=== PATIENT | male | born 1985 | race Caucasian/White ===

== ENCOUNTER → 2016-12-06 | Outpatient (CLI) | payer OTHER ==
--- NOTE | 2016-12-06 17:12 | PN ---
DATE OF SERVICE: 12/06/2016 This patient is a 30-year-old gentleman who has been followed in the sleep center. He is here to discuss results of his sleep studies. The patient had 2 home sleep apnea tests and polysomnogram in the office. No significant respiratory abnormalities were documented during the sleep studies. Scoring was done mostly following 4% oxygen desaturation criteria. Patient recently has been started on treatment with Paxil for post-traumatic stress disorder, and with this treatment the patient sleeps better and feels better during the day, although his [place] Sleepiness Scale today is still borderline at 10. His sleep study also showed increasing ( ) intrusion during REM sleep. Patient has a positive history of sleepwalking and sleeptalking. MEDICATIONS: 1. Paxil. 2. Vitamin D. 3. Fish oil. During physical exam, patient is in no distress. VITAL SIGNS: BP 120/74, HR 74, RR 16. Weight 224. Height 5 feet 8 inches. Oxygen saturation at room air 97%. HEENT: PERRLA, EOMI. LUNGS: Clear. HEART: S1, S2 regular. ABDOMEN: Slightly obese, soft, nontender. EXTREMITIES: No edema. 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 IMPRESSION: 1. No significant respiratory abnormalities by results of sleep studies with 4% oxygen desaturation criteria for hypopneas. 2. Possible post-traumatic stress disorder. Patient feels better while using Paxil with relationship to his sleep and feeling during the day. 3. Patient continues to have some sleepiness during the day. [place] Sleepiness Scale is 10. 4. Mild obesity; body mass index of 34.2. 5. History of sleepwalking; last episode about one year ago. PLAN: 1. Sleep hygiene with regular time in bed for at least 8 hours. 2. Losing weight. 3. Preferable position during sleep on the side and slightly up. 4. No driving if feeling any sleepiness. 5. Follow-up visit in several months. If patient continues to have symptoms of excessive daytime sleepiness, we will proceed that a PSG and multiple sleep latency test for objective evaluation of patient's sleepiness during the day. Previously he was scheduled for a multiple sleep latency test, but secondary to family issues he was not able to stay for MSLT after PSG. 6. Precautions related to history of sleepwalking; close doors, windows; no access to fire during the night. 7. We will consider rescoring the results of polysomnogram using 3% oxygen desaturation criteria. Thank you very much for allowing me to participate in the management of your patient. Sincerely, Britton Flanagan MD, PhD, FAASM. Diplomat of [place] [employer], Sleep Medicine Board by [place] [employer], [place] [employer]
== END | disposition home or self-care (01) ==
LOC: SLEEP 10:55
PROVIDERS: ATTEND Internal Medicine
DX: F51.3 Sleepwalking [somnambulism] (principal); F43.10 Post-traumatic stress disorder, unspecified; E66.9 Obesity, unspecified; Z68.34 Body mass index [BMI] 34.0-34.9, adult